=== PATIENT | female | born 1945 | race Caucasian/White ===

== ENCOUNTER 2021-08-15 13:43 | Emergency (ER) | payer MEDICARE ==
[2021-08-15] MEDS ORDERED: Apixaban 5 MG TAB ONE (14:56)
== END 2021-08-15 17:07 | disposition home or self-care (01) ==
LOC: CSHERS 13:43
DX: I82.401 Acute embolism and thrombosis of unspecified deep veins of right lower extremity (principal); E03.9 Hypothyroidism, unspecified; I10 Essential (primary) hypertension; J44.9 Chronic obstructive pulmonary disease, unspecified
CPT/HCPCS: 36415; 71275; 84484; 93005